=== PATIENT | male | born 1935 | race Caucasian/White ===

== ENCOUNTER → 2016-12-24 | Outpatient (CLI) | payer OTHER ==
[~2016-12-24] MED LIST: ASPIRIN325 PO; AUGMENTIN400 MG/53 PO; CRESTOR10 MG PO; CRESTOR20 MG PO; FAMVIR250 MG PO; FISH OIL 1,001000 M2 PO; FLAGYL500 MG PO; MULTI-VITAMIN1 EAC5 PO; MULTIPLE VITAM1 EAC3 PO; NEXIUM20 MG PO; NEXIUM40 MG PO; TUMERIC; TYLENOL325 MG PO; VITAMIN D32000 UNI1 PO; VITAMIN D400 UNI1 PO
[2016-12-24 11:44] LABS: CALCIUM 9.3 mg/dL (8.5-10.1); CREATININE 0.9 mg/dL (0.7-1.3); POTASSIUM 4.5 mmol/L (3.5-5.1)
== END ==
LOC: CAT 10:53
PROVIDERS: Internal Medicine
DX: I71.2 Thoracic aortic aneurysm, without rupture (principal)

== ENCOUNTER 2017-01-12 05:25 | Inpatient (IN) | payer OTHER ==
[2017-01-10 11:06] LABS: HEMATOCRIT 36.8 % (42.0-52.0); HEMOGLOBIN 12.2 gm/dL (14.0-18.0); MCH 28.7 pg (26.0-34.0); MCHC 33.3 g/dL (28.0-37.0); MCV 86.3 fL (80.0-100.0); RBC 4.26 mil/uL (4.50-6.00); RDW 14.9 % (10.5-14.5); WBC 4.8 thou/uL (4.0-11.0)
[2017-01-10 11:21] LABS: ALBUMIN 4.1 g/dL (3.4-5.0); CALCIUM 9.3 mg/dL (8.5-10.1); CREATININE 0.8 mg/dL (0.7-1.3); POTASSIUM 4.5 mmol/L (3.5-5.1); TOTAL BILIRUBIN 0.3 mg/dL (<0.1-1.0); TOTAL PROTEIN 7.1 g/dL (6.4-8.2)
[2017-01-10 13:52] LABS: URINE BILIRUBIN NEGATIVE (Negative); URINE BLOOD NEGATIVE (Negative); URINE COLOR YELLOW; URINE GLUCOSE-RANDOM* NEGATIVE (Negative); URINE KETONES NEGATIVE (Negative); URINE NITRITE NEGATIVE (Negative); URINE PROTEIN (DIPSTICK) NEGATIVE (Negative); URINE SPECIFIC GRAVITY <= 1.005 (1.003-1.035); URINE UROBILINOGEN 0.2 E.U./dl (0.2-1.0)
[~2017-01-12] VITALS: Ht 182.9 cm; Wt 83.1 kg
--- NOTE | ~2017-01-12 | O ---
[facility] [place] [address] OPERATIVE REPORT Name: MARI JAMISON V Room #: 202-P [facility] IN M.R.#: [id number] Admission: 01/12/17 Attend Phys: Ramírez Vo MD Discharge: 01/14/17 Date of : 33 Report #: [id number] THIS REPORT FOR: //name// CC: Ramírez Russellbrannon DATE OF SERVICE: 01/12/2017 DATE OF SERVICE: 01/12/2017. PREOPERATIVE DIAGNOSIS: Infrarenal abdominal aortic aneurysm. POSTOPERATIVE DIAGNOSIS: Infrarenal abdominal aortic aneurysm. OPERATION: Stent graft implant for infrarenal abdominal aortic aneurysm. SURGEONS: Ramírez Vo MD and Mark Barron MD. DEAN OF FACULTY: Yong CANTU ANESTHESIA: General. INDICATIONS: The patient is an 81-year-old with a large infrarenal abdominal aortic aneurysm that appears suitable for stent graft implant. The neck of the aneurysm was somewhat conical and that it was a bit more dilated at the renal level than just below. FINDINGS AND TECHNIQUE: After general anesthesia was established, incisions were made in both groins to expose the common, deep and superficial femoral arteries. Then, 10,000 units of heparin were given. Through each side, 6-[place] introducer sheaths were placed using Amplatz needle, guidewire, and Seldinger technique. Wires were then exchanged, catheters were used to finally place Amplatz wires on each side and then over these femoral artery cut-downs were performed on each side to place an 18-[place] introducer on the left and the 12-[place] Islander on the right. Through the 18-[place] sheath introducer, the main component was introduced 26 x 14 mm x 16 cm device was placed through the right side. The lowest renal artery was entered with the selective catheter and then, a guidewire was passed and then this was used to identify the level of the renal artery. [facility] [address] [place] [address] OPERATIVE REPORT Name: MARI JAMISON V Room #: 202-P DIS IN M.R.#: [id number] Admission: 01/12/17 Attend Phys: Ramírez Vo MD Discharge: 01/14/17 Date of : 33 Report #: [id number] The main component was deployed, and then, the contralateral gate was cannulated. Presence within the gate was ascertained with the pigtail spin technique. A right iliac flush arteriogram was done to identify the hypogastric takeoff, and using this, the 14 mm x 12 cm device was placed, and this landed in good position above the hypogastric artery. The main component was fully deployed, and then, compliant balloon was used to fully dilate it. When all of the components had been fully dilated, a final arteriogram was taken. We were not satisfied with the arteriogram and had identified a type 1 leak. The Tri-Lobe balloon was then substituted for a Q50, and then, further dilatation was done. Once again, an arteriogram showed a type 1 leak, and so repeat dilatation was performed. A final arteriogram showed trivial leak with good apposition throughout, and we felt that we would be satisfied with this rather than placing an aortic cuff at this time. Satisfied with the arteriogram, the dilators and sheaths were removed, and then, the stiff wires were removed. The arteries were closed with interrupted Prolene bilaterally, and then, flow was reestablished. Protamine was given to reverse the heparin. Hemostasis was ascertained. The patient was taken to the recovery area in good condition. All counts reported as correct. <ELECTRONICALLY SIGNED> By: Ramírez Vo MD 01/18/17 1325 18 50 Ramírez Vo MD /nt
--- NOTE | ~2017-01-12 | EKG ---
[address] [employer] [place] [address] ELECTROCARDIOGRAM REPORT Name: MARI JAMISON V Room #: 246-P ADM IN M.R.#: [id number] Admission: 01/12/17 Attend Phys: Ramírez Vo MD Discharge: Date of : 33 Report #: [id number] THIS REPORT FOR: //name// [facility] Test Date: 2017-01-12 Test Time: 11:55:30 Pat Name: MARI JAMISON Department: Room: 246 Gender: M Obstetrics Gynecology Md: KELLEY : 1935 Requested By: Ramírez Vo Order Number: [id number] MD: Patel Sun Measurements Intervals [place] Rate: 69 P: 30 SC: 190 QRS: -15 QRSD: 108 T: 80 QT: 419 QTc: 449 Interpretive Statements Sinus rhythm Ventricular ectopy Borderline left axis deviation Low voltage, extremity leads Abnormal R-wave progression, early transition Compared to ECG 11/29/2015 07:14:13 No significant change was found Electronically Signed On 01-13-2017 8:19:49 CDT by Patel Sun [email or web address] <ELECTRONICALLY SIGNED> By: Patel Sun MD, [facility] 01/13/17 0819 1155 1155 Patel Sun MD, [facility] /EPI
[~2017-01-12 05:25] MED LIST changes: +FISH OIL PO; +IRON PO; +JUICE PLUS; +MULTI VITAMIN1 EACH PO; +NEXIUM PO; +PLANT ENZYME PO; +PLAVIX 75 MG TA75 M1 PO; +TUMERIC PO; +VITAMIN D2000 UNIT PO
[2017-01-12 12:22] LABS: APTT 25.4 Seconds (24.5-32.8); INR 1.1; PROTIME 11.4 Seconds (9.3-11.4)
[2017-01-12 12:30] VITALS: BP 163/81
[2017-01-13] VITALS (7 sets, daily range): BP systolic 127–162; BP diastolic 64–88
[2017-01-13 06:47] LABS: HEMATOCRIT 34.3 % (42.0-52.0); HEMOGLOBIN 11.8 gm/dL (14.0-18.0); MCH 29.5 pg (26.0-34.0); MCHC 34.3 g/dL (28.0-37.0); RBC 3.99 mil/uL (4.50-6.00); RDW 14.6 % (10.5-14.5)
[2017-01-13 06:55] LABS: CALCIUM 8.9 mg/dL (8.5-10.1); CREATININE 1.1 mg/dL (0.7-1.3); POTASSIUM 4.1 mmol/L (3.5-5.1)
[2017-01-14 04:24] VITALS: BP 132/66
[2017-01-14 07:36] VITALS: BP 137/85
[2017-01-14 11:42] VITALS: BP 152/67
[2017-01-14] MEDS ORDERED: AMLODIPINE BESYL5 M1 PO (14:11)
[2017-01-14 14:47] VITALS: BP 152/67
== END 2017-01-14 15:28 | disposition home or self-care (01) | DRG 269 ==
LOC: TBA 05:25 → ICU 05:25 → 2N 01-13 20:14
PROVIDERS: Physician Assistant; Surgery Vascular Surgery
PROC: 04V03DZ Restriction of Abdominal Aorta with Intraluminal Device, Percutaneous Approach (ICD-10-PCS; principal; 2017-01-12)
PROC: B4181ZZ Fluoroscopy of Bilateral Renal Arteries using Low Osmolar Contrast (ICD-10-PCS; principal; 2017-01-12)
DX: I71.4 Abdominal aortic aneurysm, without rupture (principal); I10 Essential (primary) hypertension; Z79.899 Other long term (current) drug therapy; Z79.82 Long term (current) use of aspirin
CPT/HCPCS: 10078; 47375; 48888; 50010; 50101; 50386; 50455; 51078; 51751; 54118; 56524; 56526; 56531; 56668; 56760; 57093; 62110; 62900; 64031; 65020; 65040; 70005

== ENCOUNTER → 2017-02-14 | Outpatient (CLI) | payer OTHER ==
[~2017-02-14] MED LIST changes: +AMLODIPINE BESYL5 M1 PO
[2017-02-14 08:42] LABS: CREATININE 0.9 mg/dL (0.7-1.3)
== END ==
LOC: CAT 07:44
PROVIDERS: Nuclear Medicine Nuclear Cardiology
DX: I71.4 Abdominal aortic aneurysm, without rupture (principal); Z95.828 Presence of other vascular implants and grafts

== ENCOUNTER 2017-02-25 18:33 | Inpatient (IN) | payer OTHER ==
[~2017-02-25] VITALS: Ht 182.9 cm; Wt 83.9 kg
--- NOTE | ~2017-02-25 | EKG ---
[address] [place] [address] ELECTROCARDIOGRAM REPORT Name: YAQUELINMARI Farzaneh Room #: 312-P [facility] IN M.R.#: [id number] Admission: 02/25/17 Attend Phys: Pedrito Mishra MD Discharge: Date of : 33 Report #: [id number] THIS REPORT FOR: //name// [facility] Test Date: 2017-02-26 Test Time: 08:18:59 Pat Name: MARI JAMISON Department: Room: 312 P Gender: M Rn Birthing: RAMON : 1935 Requested By: Kae Pak Order Number: [id number] MD: Patel Sun Measurements Intervals [place] Rate: 88 P: 0 WI: 224 QRS: -6 QRSD: 101 T: QT: 367 QTc: 444 Interpretive Statements Sinus rhythm Multiple ventricular premature complexes Prolonged WI interval Borderline low voltage, extremity leads Nonspecific T abnormalities Compared to ECG 01/12/2017 11:55:30 Nonspecific change in the ST and T-wave segments Electronically Signed On 02-27-2017 10:52:40 CDT by Patel Sun [email or web address] <ELECTRONICALLY SIGNED> By: Patel Sun MD, [facility] 02/27/17 1052 7 0818 Patel Sun MD, [facility] /EPI
--- NOTE | ~2017-02-25 | HC ---
[facility] [place] [address] CONSULTATION Name: YAQUELINMARI Farzaneh Room #: 312-P [facility] IN ..#: [id number] Admission: 02/25/17 Attend Phys: Pedrito Mishra MD Discharge: Date of : 33 Report #: [id number] THIS REPORT FOR: //name// CC: Pedrito Francis DATE OF SERVICE: 02/26/2017 CONSULTATION: Infectious diseases. HISTORY OF PRESENT ILLNESS: The patient is an 81-year-old white male who comes to [facility] on February 25 because of a witnessed syncopal episode. The patient was at the kitchen table when he lost consciousness for about 5 minutes. He was shaken and then aroused and then had an emesis and incontinent urine. The patient was brought to the emergency room for further evaluation and treatment. The patient has had history of similar episode which was considered vasovagal in nature. The patient had esophageal cancer 10 years ago, treated with intensive radiation therapy and was thought to have possible damage to the vagal nerve as a result. However, the patient also has esophageal stricture related to the cancer and treatment and does have a history of aspiration. The patient had a temperature of 100.9. Infectious disease consultation was requested to assist with the evaluation and possible antibiotic treatment. PAST MEDICAL HISTORY: Past history, as noted, includes the esophageal cancer, which apparently was thought to be cured by the radiation therapy. Other diagnoses include stroke seen on MRI scan, sleep apnea, esophageal reflux and prostate cancer. The patient has intermittent esophageal obstruction, requiring dilation. He last had an esophageal dilation approximately 6 months ago and was scheduled to have one done here in the next few weeks at . PAST SURGICAL HISTORY: Includes placement of a stent graft in the abdominal aortic aneurysm. SOCIAL HISTORY: The patient is . 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 He did not have any history of tobacco, alcohol or drugs. REVIEW OF SYSTEMS: The patient says he feels pretty much back to normal. He is not having really any pain. Denies any headache, sinus congestion or sore throat. He is not having any trouble swallowing. He denies cough, congestion, dyspnea or shortness of breath. He denies any pain in his chest. The patient denies nausea, vomiting, diarrhea, constipation or abdominal pain. No urinary symptoms. No trouble with his extremities. PHYSICAL EXAMINATION: [facility] [address] [place] [address] CONSULTATION Name: MARI JAMISON V Room #: 312-P [facility] IN ..#: [id number] Admission: 02/25/17 Attend Phys: Pedrito Mishra MD Discharge: Date of : 33 Report #: [id number] GENERAL: On examination, the patient appears his stated age, alert, oriented, comfortable, pleasant, not in any distress. The patient is generally weak, but otherwise alert and appropriate. VITAL SIGNS: Show maximum temperature of 100.9 in the ER. He has been afebrile since then. SKIN: Pale, without any rash, lesion or exanthem. ENT EXAMINATION: Negative. HEART: Heart sounds normal. LUNGS: Clear to anterior and posterior auscultation. ABDOMEN: Belly is soft and nontender. No mass, no organomegaly. EXTREMITIES: Weak, but otherwise unremarkable. LABORATORY DATA: The white count is 7.8, hemoglobin 9.7 and platelets 112,000. Electrolytes are normal. BUN 15, creatinine 1.1 and glucose 148. The C-reactive protein is elevated at 15.5. Chest x-ray shows left lower lobe atelectasis, no convincing infiltrates. Doppler of the carotids show 70% blockage on the left internal carotid artery. SUMMARY: In summary, the patient had an episode with transient loss of consciousness with a history of vasovagal spells of this nature. There is no history of nausea, vomiting, emesis or any aspiration witnessed with this event. The patient had a mild fever in the ER, but now appears to be pretty much back to his baseline. At this time, I am not convinced there is any infection. The elevated temperature may have just been associated with the acute event. I would recommend no antibiotic therapy and careful followup. We can do incentive spirometry and aerosolized bronchodilators to see if the atelectasis will resolve. We can do followup chest x-ray and CBC and we can check a procalcitonin. Should the patient develop any more convincing symptoms of infection, antibiotics would be appropriate. However, at this time, I think this is most likely just another one of his vasovagal episodes. <ELECTRONICALLY SIGNED> By: Ramírez Elliott MD 02/27/17 2233 0834 0953 Ramírez Elliott MD /nt
--- NOTE | ~2017-02-25 | EKG ---
[place] [address] [facility] [place] [address] ELECTROCARDIOGRAM REPORT Name: MARI JAMISON V Room #: 312-P DIS IN M.R.#: [id number] Admission: 02/25/17 Attend Phys: Hakeem Tillman DO Discharge: 02/28/17 Date of : 33 Report #: [id number] THIS REPORT FOR: //name// [facility] Test Date: 2017-02-28 Test Time: 06:51:21 Pat Name: MARI JAMISON Department: Room: 312 P Gender: M Package Liner: christine : 1935 Requested By: Kae Pak Order Number: [id number] MD: Patel Sun Measurements Intervals [place] Rate: 86 P: 5 AR: 188 QRS: -11 QRSD: 95 T: 54 QT: 369 QTc: 442 Interpretive Statements Sinus rhythm occasion al PVC Abnormal R-wave progression, early transition Baseline wander in lead(s) II,III,aVF Compared to ECG 02/26/2017 08:18:59 Ventricular premature complex(es) now present Nonspecific ST and T wave abnormality Electronically Signed On 03-02-2017 7:04:33 CDT by Patel Sun [email or web address] <ELECTRONICALLY SIGNED> By: Patel Sun MD, [facility] 03/02/17 0704 0651 0651 Patel Sun MD, [facility] /EPI
--- NOTE | ~2017-02-25 | HC ---
[facility] [place] [address] CONSULTATION Name: MARI JAMISON V Room #: 312-P [facility] IN .R.#: [id number] Admission: 02/25/17 Attend Phys: Hakeem Tillman DO Discharge: 02/28/17 Date of : 33 Report #: [id number] THIS REPORT FOR: //name// CC: Pedrito Francis DATE OF SERVICE: 02/26/2017 REASON FOR CONSULTATION: Syncope. HISTORY OF PRESENT ILLNESS: The patient is an 81-year-old gentleman with a history of remote syncope. He also has a history of esophageal cancer diagnosed in 2007 for which he underwent radiation therapy. He has had recurrent esophageal dilatations and is due for one in April. He was at a restaurant yesterday with his , eating dinner. He felt mildly diaphoretic. The next thing he knows he was being "shaken awake." He was incontinent of urine. He was brought to the emergency department where he was hemodynamically stable and pain free. Of particular note, he underwent recent aortic stent grafting and as part of the evaluation for that, had a variety of cardiovascular tests performed including coronary angiography, which demonstrated normal coronary vasculature and normal coronary arteries. His reports that prior syncopal episodes in the past have occurred when he has bent over at the waist. This was not the case with yesterday's episode, although he was given a warning that something was not quite right prior to be the syncopal episode. He denies palpitations. He denies heart failure symptoms including orthopnea or paroxysmal nocturnal dyspnea. No recent fevers or chills. No reason for him to have been dehydrated. MEDICATIONS: Medicines include Plavix 75 mg daily, Crestor 10 mg daily, aspirin, Nexium, iron, and amlodipine 5 mg twice daily. PAST MEDICAL HISTORY: Past history is notable for esophageal cancer, tonsillectomy, cataract excision, aortic stent grafting, prior TIAs, appendectomy, sleep apnea treated with CPAP, and prostate cancer. 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 He does not smoke or drink. . FAMILY HISTORY: Unremarkable for premature coronary disease. REVIEW OF SYSTEMS: All systems negative except as that noted above. PHYSICAL EXAMINATION: GENERAL: Reveals a pleasant gentleman in no distress. VITAL SIGNS: Blood pressure is 116/65 and heart rate of 85 and regular. He is afebrile. [facility] [address] [place] [address] CONSULTATION Name: MARI JAMISON V Room #: 312-P [facility] IN ..#: [id number] Admission: 02/25/17 Attend Phys: Hakeem Tillman DO Discharge: 02/28/17 Date of : 33 Report #: [id number] HEENT: There are neither xanthelasma, subcutaneous xanthomata, oral mucosal or digital cyanosis, or kyphoscoliosis present. CHEST: Clear to auscultation and percussion. CARDIAC: Reveals a regular rate and rhythm with normal S1, S2. No murmurs or rubs. ABDOMEN: Soft and nontender. EXTREMITIES: Without cyanosis, clubbing, or edema. Radial pulses are 2+. NEUROLOGIC: He is alert with a nonfocal exam. LABORATORY DATA: EKG: Sinus rhythm with first-degree AV block and occasional premature ventricular complexes. Sodium 141, potassium 3.6, creatinine 1.0, and glucose 148. ProBNP of 101. Troponin is normal. Coagulation parameters are normal. White count 6.5, hemoglobin 10, hematocrit 32, and platelet count 125. IMPRESSION: 1. Syncope. 2. Esophageal carcinoma, remote. 3. Recent abdominal aortic stent grafting. 4. Dyslipidemia. 5. Mild hypertension. RECOMMENDATIONS: 1. Given his recent extensive and normal cardiovascular evaluation, I do not believe reassessment of systolic function is needed at this point. This episode had features suspicious for primary dysrhythmia. Although, nothing has been seen on telemetry monitoring, I would recommend an event recorder as an outpatient. 2. No driving for any event-free interval. 3. No medication changes at this point. If the event recorder is unremarkable, I would consider placement of an implantable loop recorder. I have discussed these issues with the patient. Thank you for asking me to participate in his care. <ELECTRONICALLY SIGNED> By: Patel Sun MD, FACC 03/01/17 1635 1211 1533 Patel Sun MD, FAC /nt
--- NOTE | ~2017-02-25 | EKG ---
[address] [place] [address] ELECTROCARDIOGRAM REPORT Name: MARI JAMISON V Room #: 312-P DIS IN M.R.#: [id number] Admission: 02/25/17 Attend Phys: Hakeem Tillman DO Discharge: 02/28/17 Date of : 33 Report #: [id number] THIS REPORT FOR: //name// [facility] Test Date: 2017-02-27 Test Time: 07:49:40 Pat Name: MARI JAMISON Department: Room: 312 P Gender: M Patient Registration Clerk: RASHAUN : 1935 Requested By: Kae Pak Order Number: [id number] MD: Patel Sun Measurements Intervals [place] Rate: 115 P: 5 NE: 192 QRS: 21 QRSD: 71 T: 120 QT: 354 QTc: 490 Interpretive Statements Sinus tachycardia Low voltage, extremity leads Nonspecific T abnormalities Borderline prolonged QT interval Baseline wander in lead(s) III Compared to ECG 01/12/2017 11:55:30 Nonspecific change in the ST and T-wave segments Electronically Signed On 03-02-2017 6:59:36 CDT by Patel Sun [email or web address] <ELECTRONICALLY SIGNED> By: Patel Sun MD, [facility] 03/02/17 0659 0749 0749 Patel Sun MD, [facility] /EPI
--- NOTE | ~2017-02-25 | EKG ---
[address] [employer] [place] [address] ELECTROCARDIOGRAM REPORT Name: MARI JAMISON V Room #: 312-P [facility] IN M.R.#: [id number] Admission: 02/25/17 Attend Phys: Pedrito Mishra MD Discharge: Date of : 33 Report #: [id number] THIS REPORT FOR: //name// [facility] ED Test Date: 2017-02-25 Test Time: 18:38:52 Pat Name: MARI JAMISON Department: Room: [facility] Gender: M Bd Special Education Teacher: GINETTE Gonzalez : 1935 Requested By: Mira Rios Order Number: [id number] MD: Patel Sun Measurements Intervals [place] Rate: 106 P: 27 IA: 191 QRS: -43 QRSD: 119 T: 101 QT: 321 QTc: 427 Interpretive Statements Sinus tachycardia Premature ventricular complexes Nonspecific IVCD with LAD Nonspecific ST and T wave abnormality Compared to ECG 01/12/2017 11:55:30 nonspecific change in the ST and T-wave segments Electronically Signed On 02-27-2017 10:50:02 CDT by Patel Sun [email or web address] <ELECTRONICALLY SIGNED> By: Patel Sun MD, [facility] 02/27/17 1050 1838 1838 Patel Sun MD, [facility] /EPI
[2017-02-25 19:11] LABS: ABSOLUTE NEUTROPHILS 4.4 thou/uL (1.4-8.2); BASOPHILS 0.3 % (0.0-2.0); EOSINOPHILS 2.4 % (0.0-3.0); HEMATOCRIT 32.1 % (42.0-52.0); HEMOGLOBIN 10.7 gm/dL (14.0-18.0); LYMPHOCYTES 18.8 % (24.0-44.0); MCH 30.3 pg (26.0-34.0); MCHC 33.2 g/dL (28.0-37.0); MCV 91.1 fL (80.0-100.0); MONOCYTES 9.9 % (1.0-8.0); PLATELET COUNT 125 thou/uL (150-400); POLYS 68.6 % (36.0-66.0); RBC 3.52 mil/uL (4.50-6.00); RDW 16.1 % (10.5-14.5); WBC 6.5 thou/uL (4.0-11.0)
[2017-02-25 19:12] LABS: MANUAL DIFF NO
[2017-02-25 19:22] LABS: ANION GAP 9 mmol/L (7-16); BUN 13 mg/dL (7-18); CALCIUM 9.1 mg/dL (8.5-10.1); CHLORIDE 103 mmol/L (98-107); CO2 29 mmol/L (21-32); GLUCOSE 148 mg/dL (74-106); POTASSIUM 3.6 mmol/L (3.5-5.1); SODIUM 141 mmol/L (136-145)
[2017-02-25 19:33] LABS: ALBUMIN 3.9 g/dL (3.4-5.0); ALKALINE PHOSPHATASE 70 U/L (46-116); INR 1.1; NT-PRO BRAIN NAT PEPTIDE 101 pg/mL (<300); PROTIME 10.9 Seconds (9.3-11.4); SGOT 19 U/L (15-37); SGPT 19 U/L (30-65); TOTAL BILIRUBIN 0.3 mg/dL (<0.1-1.0); TOTAL PROTEIN 7.4 g/dL (6.4-8.2); TROPONIN-I < 0.04 ng/mL (<0.04-0.07)
[2017-02-25 21:03] VITALS: BP 116/65
[2017-02-25 21:22] VITALS: BP 128/79
[2017-02-25 23:59] VITALS: BP 122/72
[2017-02-26 01:14] VITALS: BP 113/72
[2017-02-26 03:20] VITALS: BP 109/66
[2017-02-26 04:06] LABS: HEMATOCRIT 28.8 % (42.0-52.0); HEMOGLOBIN 9.7 gm/dL (14.0-18.0); MCH 30.9 pg (26.0-34.0); MCHC 33.6 g/dL (28.0-37.0); RBC 3.14 mil/uL (4.50-6.00); RDW 15.6 % (10.5-14.5); WBC 7.8 thou/uL (4.0-11.0)
[2017-02-26 04:30] LABS: ANION GAP 7 mmol/L (7-16); BUN 15 mg/dL (7-18); CALCIUM 8.5 mg/dL (8.5-10.1); CHLORIDE 102 mmol/L (98-107); CO2 31 mmol/L (21-32); CREATININE 1.1 mg/dL (0.7-1.3); GLUCOSE 130 mg/dL (74-106); MAGNESIUM 1.6 mg/dL (1.8-2.4); POTASSIUM 4.4 mmol/L (3.5-5.1); SODIUM 140 mmol/L (136-145); TROPONIN-I < 0.04 ng/mL (<0.04-0.07)
[2017-02-26 07:59] VITALS: BP 125/71
[2017-02-26 16:40] VITALS: BP 172/89
[2017-02-26 19:01] VITALS: BP 121/71
[2017-02-27 04:34] VITALS: BP 150/54
[2017-02-27 04:52] VITALS: BP 149/81
[2017-02-27 07:30] VITALS: BP 108/68
[2017-02-27 07:37] LABS: HEMATOCRIT 31.5 % (42.0-52.0); HEMOGLOBIN 10.5 gm/dL (14.0-18.0); MCH 30.3 pg (26.0-34.0); MCHC 33.2 g/dL (28.0-37.0); MCV 91.2 fL (80.0-100.0); PLATELET COUNT 111 thou/uL (150-400); RBC 3.45 mil/uL (4.50-6.00); RDW 15.5 % (10.5-14.5); WBC 7.2 thou/uL (4.0-11.0)
[2017-02-27 07:42] LABS: MANUAL DIFF YES
[2017-02-27 07:58] LABS: ANION GAP 8 mmol/L (7-16); BUN 12 mg/dL (7-18); CALCIUM 9.1 mg/dL (8.5-10.1); CHLORIDE 101 mmol/L (98-107); CO2 30 mmol/L (21-32); GLUCOSE 132 mg/dL (74-106); MAGNESIUM 1.8 mg/dL (1.8-2.4); POTASSIUM 3.8 mmol/L (3.5-5.1); SODIUM 139 mmol/L (136-145); TROPONIN-I < 0.04 ng/mL (<0.04-0.07)
[2017-02-27 10:55] LABS: METAMYELOCYTES 1 %; TOTAL CELL COUNT 100
[2017-02-27 10:56] LABS: ABSOLUTE NEUTROPHILS 6.1 thou/uL (1.4-8.2); ANISOCYTOSIS SLIGHT
[2017-02-27 15:40] VITALS: BP 142/82
[2017-02-27 19:33] VITALS: BP 136/67
[2017-02-28 03:50] VITALS: BP 139/85
[2017-02-28 03:50] LABS: HEMOGLOBIN 9.5 gm/dL (14.0-18.0); MCH 30.8 pg (26.0-34.0); MCHC 34.1 g/dL (28.0-37.0); MCV 90.5 fL (80.0-100.0); RBC 3.09 mil/uL (4.50-6.00); RDW 15.6 % (10.5-14.5); WBC 6.7 thou/uL (4.0-11.0)
[2017-02-28 03:55] LABS: ANION GAP 8 mmol/L (7-16); BUN 11 mg/dL (7-18); CALCIUM 8.9 mg/dL (8.5-10.1); CHLORIDE 98 mmol/L (98-107); CO2 29 mmol/L (21-32); CREATININE 0.9 mg/dL (0.7-1.3); GLUCOSE 131 mg/dL (74-106); MAGNESIUM 1.7 mg/dL (1.8-2.4); POTASSIUM 3.8 mmol/L (3.5-5.1); SODIUM 135 mmol/L (136-145); TROPONIN-I < 0.04 ng/mL (<0.04-0.07)
[2017-02-28 08:00] VITALS: BP 124/82
[2017-02-28] MEDS ORDERED: AUGMENTIN 500-1 EACH PO (09:40)
[2017-02-28 10:30] VITALS: BP 111/57
[2017-02-28 14:17] VITALS: BP 111/57
== END 2017-02-28 15:40 | disposition home or self-care (01) | DRG 177 ==
LOC: ER 18:33 → EROBS 20:41 → 3N 20:41
PROVIDERS: Nurse Practitioner; Nurse Practitioner Family
DX: J69.0 Pneumonitis due to inhalation of food and vomit (principal); J96.00 Acute respiratory failure, unspecified whether with hypoxia or hypercapnia; I71.4 Abdominal aortic aneurysm, without rupture; I48.91 Unspecified atrial fibrillation; K21.9 Gastro-esophageal reflux disease without esophagitis; K22.2 Esophageal obstruction; E78.00 Pure hypercholesterolemia, unspecified; E78.5 Hyperlipidemia, unspecified; I10 Essential (primary) hypertension; G47.30 Sleep apnea, unspecified; Z90.49 Acquired absence of other specified parts of digestive tract; Z85.01 Personal history of malignant neoplasm of esophagus; Z98.42 Cataract extraction status, left eye; Z98.41 Cataract extraction status, right eye; Z85.46 Personal history of malignant neoplasm of prostate; Z86.73 Personal history of transient ischemic attack (TIA), and cerebral infarction without residual deficits; Z92.3 Personal history of irradiation; Z79.82 Long term (current) use of aspirin; Z79.899 Other long term (current) drug therapy
CPT/HCPCS: 10096

== ENCOUNTER → 2017-08-11 | Outpatient (CLI) | payer OTHER ==
[~2017-08-11] MED LIST changes: +ALBUTEROL2.5 MG/31 INH; +AUGMENTIN 500-1 EACH PO; +AUGMENTIN 875-1 EACH PO; +IPRAT-ALBUT 0.5-3 ML INH; +IRON325 PO; +LASIX 40 MG TAB40 M2 PO; +LOPRESSOR25 PO; +PERCOCET PO; +PULMICORT0.5 MG/21 INH; +SEROQUEL 25 MG25 M1 PO
== END ==
LOC: CAT 07:17
PROVIDERS: Nuclear Medicine Nuclear Cardiology
DX: I71.4 Abdominal aortic aneurysm, without rupture (principal); M16.0 Bilateral primary osteoarthritis of hip; N20.0 Calculus of kidney; I72.2 Aneurysm of renal artery; I25.10 Atherosclerotic heart disease of native coronary artery without angina pectoris; Z98.890 Other specified postprocedural states

== ENCOUNTER → 2018-02-16 | Outpatient (CLI) | payer OTHER ==
[~2018-02-16] MED LIST changes: -ALBUTEROL2.5 MG/31 INH; -AUGMENTIN 875-1 EACH PO; -IPRAT-ALBUT 0.5-3 ML INH; -IRON325 PO; -LASIX 40 MG TAB40 M2 PO; -LOPRESSOR25 PO; -PERCOCET PO; -PULMICORT0.5 MG/21 INH; -SEROQUEL 25 MG25 M1 PO
[2018-02-16 08:22] LABS: CREATININE 0.9 mg/dL (0.7-1.3)
== END ==
LOC: CAT 07:40
PROVIDERS: Nuclear Medicine Nuclear Cardiology
DX: Z01.812 Encounter for preprocedural laboratory examination (principal); I71.4 Abdominal aortic aneurysm, without rupture; N20.0 Calculus of kidney; Z95.828 Presence of other vascular implants and grafts

== ENCOUNTER 2018-05-02 20:22 | Inpatient (IN) | payer OTHER ==
[~2018-05-02] VITALS: Ht 182.9 cm; Wt 83.2 kg
--- NOTE | ~2018-05-02 | HC ---
[facility] [place] [address] CONSULTATION Name: MARI JAMISON V Room #: 241-P [facility] IN M.R.#: [id number] Admission: 05/02/18 Attend Phys: Tee Barajas MD Discharge: Date of : 33 Report #: [id number] THIS REPORT FOR: //name// CC: Tee Francis DATE OF SERVICE: 05/10/2018 REASON FOR CONSULTATION: Surgically placed gastrostomy tube. HISTORY OF PRESENT ILLNESS: The patient is an 82-year-old who I do know from about 10 years ago. The patient with esophageal cancer and had difficulty with swallowing. I placed a laparoscopic gastrostomy tube. Subsequently, the patient was seen for a perirectal abscess or fistula. Recently, he was admitted on 05/02/2018 with passing out. The patient has been getting dilatation of his esophagus to assist him with swallowing, but that has gradually gotten worse and worse. The patient also has stridor. He underwent a tracheostomy tube today by Dr. Rodriguez. Attempts have been made to try to replace a PEG tube and to place a PEG tube endoscopically, but that was unsuccessful. The patient has apparently a stricture of the esophagus to about a cm. The patient also has difficulty emptying and failed a swallow study. The patient did get a consult for interventional radiologist for PEG tube, but they declined. I have been consulted for a laparoscopic placement of the G-tube. PHYSICAL EXAMINATION: GENERAL: He is alert. He has given me the thumbs up. was present in the room during the consult. ABDOMEN: Soft and nondistended. Has a right lower quadrant scar from appendectomy. I do not really see much of the laparoscopic incisions. He does have a site in the left upper quadrant where the gastrostomy tube was. No mass, tenderness, guarding. No ascites. IMPRESSION: The patient is an 82-year-old with esophageal stricture, aspiration, need for gastrostomy tube for feeding. This has not been able to be placed with endoscopic approach nor Interventional Radiology. I agree with recommendation for laparoscopic placement. I will try to set this up on Tuesday. There is a big case I have tomorrow already scheduled for on 05/11/2018. Also, we will need to contact the OR to make sure the laparoscopic feeding tube kit is available. <ELECTRONICALLY SIGNED> By: Mango Chapin MD 05/14/18 1153 1550 0047 Mango Chapin MD /nt
--- NOTE | ~2018-05-02 | 2DMMODE ---
[facility] [address] [employer] [address] 2 D/M-MODE ECHOCARDIOGRAM Name: YAQUELINMARI Farzaneh Room #: 364-P [facility] IN ..#: [id number] Admission: 05/02/18 Attend Phys: Tee Barajas MD Discharge: Date of : 31 Date of Service: 05/03/18 1018 Report #: [id number] THIS REPORT FOR: //name// APPROVED REPORT Study performed: 05/03/2018 09:02:18 EXAM: Comprehensive 2D, Doppler, and color-flow Echocardiogram Patient Location: Bedside Room #: 364 Status: routine BSA: 2.06 HR: 104 bpm BP: 146/78 mmHg Other Information Study Quality: Adequate Indications Syncope Hypertension/HDD Volumes Left Atrial Volume (Systole) Single Plane 4CH: 44.92 mL Single Plane 2CH: 36.30 mL LA ESV Index: 23.00 mL/m2 Aortic Valve AoV Peak Ammon.: 1.61 m/s AO Peak Gr.: 10.42 mmHg LVOT Max P.01 mmHg LVOT Max V: 1.23 m/s Pulmonary Valve PV Peak Ammon.: 1.20 m/s PV Peak Gr.: 5.79 mmHg Left Ventricle The left ventricle is normal size. There is normal LV segmental wall motion. There is normal left ventricular wall thickness. The left ventricular systolic function is normal. The left ventricular ejection fraction is within the normal range. LVEF is 55-60%. Grade I - abnormal relaxation pattern. Right Ventricle The right ventricle is normal size. The right ventricular systolic function is normal. [facility] [address] [facility] [address] [address] 2 D/M-MODE ECHOCARDIOGRAM Name: MARI JAMISON V Room #: 364-P [facility] IN ..#: [id number] Admission: 05/02/18 Attend Phys: Tee Barajas MD Discharge: Date of : 33 Date of Service: 05/03/18 1018 Report #: [id number] [place] The left atrium size is normal. The right atrium size is normal. Aortic Valve The aortic valve is normal in structure. No aortic regurgitation is present. There is no aortic valvular stenosis. Mitral Valve The mitral valve is normal in structure. There is no mitral valve regurgitation noted. No evidence of mitral valve stenosis. Tricuspid Valve The tricuspid valve is normal in structure. There is no tricuspid valve regurgitation noted. Pulmonic Valve The pulmonary valve is normal in structure. There is no pulmonic valvular regurgitation. Great Vessels The aortic root is normal in size. IVC is normal in size and collapses >50% with inspiration. Pericardium Trace anterior pericardial effusion. <Conclusion> The left ventricle is normal size. LVEF is 55-60%. The aortic valve is normal in structure. The mitral valve is normal in structure. The tricuspid valve is normal in structure. The pulmonary valve is normal in structure. Trace anterior pericardial effusion. <ELECTRONICALLY SIGNED> By: Blair Garcia MD 05/03/18 1018 1018 1018 Blair Garcia MD /INF
--- NOTE | ~2018-05-02 | EKG ---
[address] [place] [address] ELECTROCARDIOGRAM REPORT Name: YAQUELIN,MARI Farzaneh Room #: 364-P ADM IN M.R.#: [id number] Admission: 05/02/18 Attend Phys: Tee Barajas MD Discharge: Date of : 33 Report #: [id number] THIS REPORT FOR: //name// [facility] ED Test Date: 2018-05-02 Test Time: 20:23:36 Pat Name: MARI JAMISON Department: Room: 364 Gender: M Collection Systems Technician: PAT : 1935 Requested By: Angella Schaefer Order Number: [id number] MD: Bharat Hess Measurements Intervals [place] Rate: 103 P: 51 IA: 206 QRS: -61 QRSD: 106 T: 89 QT: 369 QTc: 483 Interpretive Statements Sinus tachycardia Left anterior fascicular block Abnormal R-wave progression, early transition Nonspecific T abnormalities, lateral leads Compared to ECG 02/28/2017 06:51:21 Left anterior fascicular block now present T-wave abnormality now present Sinus rhythm no longer present Ventricular premature complex(es) no longer present Electronically Signed On 05-03-2018 16:22:20 CDT by Bharat Hess [email or web address] <ELECTRONICALLY SIGNED> By: Bharat Hess MD 05/03/182 22 22 Bharat Hess MD /EPI
--- NOTE | ~2018-05-02 | O ---
[facility] [place] [address] OPERATIVE REPORT Name: MARI JAMISON V Room #: 241-P [facility] IN M.R.#: [id number] Admission: 05/02/18 Attend Phys: Tee Barajas MD Discharge: Date of : 33 Report #: [id number] THIS REPORT FOR: //name// CC: Tee Francis DATE OF SERVICE: 05/12/2018 PREOPERATIVE DIAGNOSIS: Esophageal stricture, history of esophageal cancer, needs gastrostomy tube aspiration. POSTOPERATIVE DIAGNOSIS: Esophageal stricture, history of esophageal cancer, needs gastrostomy tube aspiration. PROCEDURES PERFORMED: Laparoscopic gastrostomy tube placement. COMPLICATIONS: None. ESTIMATED BLOOD LOSS: 5 mL PROCEDURE NOTE: With the patient under general anesthesia, abdomen was prepped and draped in sterile fashion. The patient had a previous incision in the infraumbilical position. A laparoscopic port site was placed supraumbilically, a 2 cm incision was made. Fascia was identified, grasped with hemostat. Fascia was then opened under visualization. Peritoneum was entered with a Veress needle with the abdominal wall lifted anteriorly variant. CO2 was administered without difficulty. After creating pneumoperitoneum pressure of 14, 11 mm trocar was placed into the pneumoperitoneum without difficulty. The patient's stomach was visualized. He does have a slight tunnel from the skin. The stomach will be utilized just adjacent to the L2 side. T-fastener was placed in a yogesh-shaped manner. Four separate T-fasteners were placed. With the T-fastener lifted up against the wall, an incision was made in the skin about a centimeter in size. A needle was then placed into the stomach. The air was placed through the needle. I could see the stomach inflated. This was consistent with the needle in the lumen. A J-wire was then passed. The J-wire was passed with minimal resistance. The track was then dilated with the supply dilator. The dilator was then removed. The gastrostomy tube was supplied with the kit and was placed. This is actually 12-Cymraes in size, a bit smaller than I would like, but this is the only kit we have. This was passed through the Peel-Apart sheath without difficulty. The sheath was peeled apart leaving the tube in place. The balloon was inflated. This was inflated with about 2-3 mL of saline. The balloon was then withdrawn and pulling the stomach up to the wall. The external support buttress part was tied to the tube using 2-0 nylon suture. The external buttress was then sewn to the skin with 2-0 nylon in interrupted fashion x 3. CO2 was evacuated. Trocars removed. The [address] [address] OPERATIVE REPORT Name: MARI JAMISON V Room #: 241-P [facility] IN M.R.#: [id number] Admission: 05/02/18 Attend Phys: Tee Barajas MD Discharge: Date of : 33 Report #: [id number] defect above the umbilicus was closed with [id number] 0 Vicryl x 2. Skin was irrigated. Skin was closed with 5-0 PDS and the laparoscopic port sites. The site of the 11 mm trocar initially, two 5 mm trocars used for the procedure. Steri-Strip, Band-Aids applied. 4 x 4 was placed around the G-tube and Op-Site was then used to cover the G-tube site. The patient tolerated procedure well. <ELECTRONICALLY SIGNED> By: Mango Chapin MD 05/14/18 1153 1555 1807 Mango Chapin MD /nt
--- NOTE | ~2018-05-02 | O ---
[facility] [place] [address] OPERATIVE REPORT Name: MARI JAMISON V Room #: 241-P [facility] IN M.R.#: [id number] Admission: 05/02/18 Attend Phys: Tee Barajas MD Discharge: Date of : 33 Report #: [id number] THIS REPORT FOR: //name// CC: Tee Francis DATE OF SERVICE: 05/10/2018 PREOPERATIVE DIAGNOSES: Respiratory failure, upper airway obstruction, ventilator dependence. POSTOPERATIVE DIAGNOSES: Respiratory failure, upper airway obstruction, ventilator dependence. OPERATIVE PROCEDURE: Tracheostomy. ANESTHESIA: General endotracheal. DESCRIPTION OF PROCEDURE: The patient was taken to the operating room and placed in supine position. The patient already had a previously placed endotracheal tube and general anesthesia was induced intravenously and ventilated through the endotracheal tube. The patient was then prepared and draped in a sterile manner. An incision was placed in the patient's neck in a vertical incision skilled nursing between the sternal notch and the thyroid cartilage. Dissection was carried down through skin and subcutaneous tissue. The patient had previous radiation treatment and there was quite a bit of scarring and new vessel formation throughout. I was able to navigate down to the cricoid cartilage. I cleaned some intervening tissue below this and then identified the tracheal rings. I made an incision through 2 tracheal rings and entered the trachea. I removed a portion of middle of the tracheal rings in order to facilitate an opening for the tracheostomy tube and #6 cuffed nonfenestrated tracheostomy tube was placed into the trachea without difficulty and the patient was ventilated in this manner. The patient tolerated the procedure well and blood loss was minimal. The tracheostomy tube was sewn to the chest with 0 Prolene suture and a trach tie was placed around the neck. The patient was then taken to the Intensive Care Unit for postoperative monitoring. <ELECTRONICALLY SIGNED> By: Mango Rodriguez MD 05/10/18 1759 0855 1043 Mango Rodriguez MD /nt
[2018-05-02 20:23] VITALS: BP 165/84
[2018-05-02 20:33] LABS: ABSOLUTE NEUTROPHILS 6.7 thou/uL (1.4-8.2); BASOPHILS 0.2 % (0.0-2.0); EOSINOPHILS 0.7 % (0.0-3.0); HEMATOCRIT 29.5 % (42.0-52.0); HEMOGLOBIN 10.2 gm/dL (14.0-18.0); LYMPHOCYTES 6.9 % (24.0-44.0); MCH 31.2 pg (26.0-34.0); MCHC 34.7 g/dL (28.0-37.0); MCV 90.1 fL (80.0-100.0); MONOCYTES 6.9 % (1.0-8.0); PLATELET COUNT 90 thou/uL (150-400); POLYS 85.3 % (36.0-66.0); RBC 3.27 mil/uL (4.50-6.00); RDW 14.7 % (10.5-14.5); WBC 7.8 thou/uL (4.0-11.0)
[2018-05-02 20:40] LABS: ANION GAP 5 mmol/L (7-16); BUN 15 mg/dL (7-18); CALCIUM 9.1 mg/dL (8.5-10.1); CHLORIDE 100 mmol/L (98-107); CO2 29 mmol/L (21-32); CREATININE 0.9 mg/dL (0.7-1.3); GLUCOSE 161 mg/dL (74-106); POTASSIUM 3.8 mmol/L (3.5-5.1); SODIUM 134 mmol/L (136-145)
[2018-05-02 20:49] LABS: ALBUMIN 3.7 g/dL (3.4-5.0); SGOT 16 U/L (15-37); SGPT 14 U/L (30-65); TOTAL BILIRUBIN 0.3 mg/dL (<0.1-1.0); TOTAL PROTEIN 6.9 g/dL (6.4-8.2); TROPONIN-I <0.06 ng/mL (<0.06)
[2018-05-02 21:09] LABS: LARGE PLATELETS RARE; POLYCHROMASIA OCCASIONAL
[2018-05-02 21:47] LABS: URINE BILIRUBIN NEGATIVE (Negative); URINE BLOOD NEGATIVE (Negative); URINE CLARITY CLEAR; URINE COLOR YELLOW; URINE GLUCOSE-RANDOM* NEGATIVE (Negative); URINE KETONES 1+ (Negative); URINE LEUKOCYTES-REFLEX NEGATIVE (Negative); URINE NITRITE-REFLEX NEGATIVE (Negative); URINE PROTEIN (DIPSTICK) NEGATIVE (Negative); URINE UROBILINOGEN 0.2 E.U./dl (0.2-1.0)
[2018-05-02 23:03] VITALS: BP 193/82
[2018-05-02 23:06] VITALS: BP 193/82
[2018-05-02 23:50] VITALS: BP 178/91
[2018-05-03 05:00] VITALS: BP 146/78
[2018-05-03 06:07] LABS: CALCIUM 8.8 mg/dL (8.5-10.1); CREATININE 0.9 mg/dL (0.7-1.3)
[2018-05-03 06:11] LABS: HEMATOCRIT 28.2 % (42.0-52.0); HEMOGLOBIN 9.7 gm/dL (14.0-18.0); MCH 30.9 pg (26.0-34.0); MCHC 34.2 g/dL (28.0-37.0); MCV 90.3 fL (80.0-100.0); RBC 3.13 mil/uL (4.50-6.00); RDW 14.7 % (10.5-14.5); WBC 9.1 thou/uL (4.0-11.0)
[2018-05-03 06:43] LABS: TSH 2.155 uIU/mL (0.358-3.740)
[2018-05-03 07:12] LABS: FOLIC ACID 35.5 ng/mL (8.6-58.9)
[2018-05-03 07:29] VITALS: BP 118/84
[2018-05-03 11:53] VITALS: BP 119/68
[2018-05-03 16:24] VITALS: BP 143/81
[2018-05-03 20:30] VITALS: BP 120/82
[2018-05-04 03:45] VITALS: BP 140/82
[2018-05-04 06:11] LABS: ABSOLUTE NEUTROPHILS 6.9 thou/uL (1.4-8.2); BASOPHILS 0.1 % (0.0-2.0); EOSINOPHILS 0.5 % (0.0-3.0); HEMATOCRIT 26.4 % (42.0-52.0); LYMPHOCYTES 4.7 % (24.0-44.0); MCH 30.8 pg (26.0-34.0); MCHC 34.1 g/dL (28.0-37.0); MCV 90.2 fL (80.0-100.0); MONOCYTES 6.6 % (1.0-8.0); PLATELET COUNT 81 thou/uL (150-400); POLYS 88.1 % (36.0-66.0); RBC 2.93 mil/uL (4.50-6.00); RDW 14.6 % (10.5-14.5); WBC 7.9 thou/uL (4.0-11.0)
[2018-05-04 06:19] LABS: CALCIUM 8.7 mg/dL (8.5-10.1); CREATININE 0.8 mg/dL (0.7-1.3); MAGNESIUM 1.9 mg/dL (1.8-2.4); POTASSIUM 3.6 mmol/L (3.5-5.1)
[2018-05-04 07:45] VITALS: BP 139/74
[2018-05-04 12:19] VITALS: BP 145/75
[2018-05-04 17:08] VITALS: BP 167/87
[2018-05-04 19:48] VITALS: BP 183/95
[2018-05-04 23:25] VITALS: BP 138/82
[2018-05-05 02:54] VITALS: BP 171/97
[2018-05-05 07:30] VITALS: BP 164/99
[2018-05-05 11:19] VITALS: BP 131/73
[2018-05-05 20:00] VITALS: BP 164/97
[2018-05-06 04:10] VITALS: BP 156/111
[2018-05-06 07:01] LABS: HEMATOCRIT 28.9 % (42.0-52.0); HEMOGLOBIN 9.8 gm/dL (14.0-18.0); MCH 30.2 pg (26.0-34.0); MCHC 33.9 g/dL (28.0-37.0); MCV 89.3 fL (80.0-100.0); RBC 3.23 mil/uL (4.50-6.00); RDW 14.1 % (10.5-14.5)
[2018-05-06 07:12] LABS: CALCIUM 9.2 mg/dL (8.5-10.1); CREATININE 0.7 mg/dL (0.7-1.3); MAGNESIUM 2.1 mg/dL (1.8-2.4); POTASSIUM 3.5 mmol/L (3.5-5.1)
[2018-05-06 07:18] VITALS: BP 155/97
[2018-05-06 07:45] VITALS: BP 155/99
[2018-05-06 11:30] VITALS: BP 119/87
[2018-05-06 15:45] VITALS: BP 144/93
[2018-05-06 19:22] VITALS: BP 157/106
[2018-05-07 00:17] VITALS: BP 160/88
[2018-05-07 04:30] VITALS: BP 182/103
[2018-05-07 08:45] VITALS: BP 156/99
[2018-05-07 16:36] VITALS: BP 128/80
[2018-05-07 20:17] LABS: BE(vivo) 2.3 mmol/L (-2 to +3); HCO3 26.3 mmol/L (22.0-26.0); PCO2 38.7 mmHg (35.0-45.0); PO2 167.5 mmHg (80.0-100.0); sO2 99.2 % (92.0-98.0)
[2018-05-07 21:00] VITALS: BP 180/100
[2018-05-07 22:00] VITALS: BP 98/67
[2018-05-08] VITALS (22 sets, daily range): BP systolic 73–173; BP diastolic 50–116
[2018-05-08 05:08] LABS: CREATININE 1.1 mg/dL (0.7-1.3); POTASSIUM 4.2 mmol/L (3.5-5.1)
[2018-05-08 05:28] LABS: ABSOLUTE NEUTROPHILS 3.8 thou/uL (1.4-8.2); EOSINOPHILS 0.2 % (0.0-3.0); HEMATOCRIT 32.8 % (42.0-52.0); HEMOGLOBIN 11.1 gm/dL (14.0-18.0); LYMPHOCYTES 5.3 % (24.0-44.0); MCH 30.5 pg (26.0-34.0); MCHC 33.7 g/dL (28.0-37.0); MCV 90.4 fL (80.0-100.0); MONOCYTES 1.9 % (1.0-8.0); PLATELET COUNT 145 thou/uL (150-400); POLYS 92.6 % (36.0-66.0); RBC 3.63 mil/uL (4.50-6.00); RDW 14.6 % (10.5-14.5); WBC 4.1 thou/uL (4.0-11.0)
[2018-05-09] VITALS (29 sets, daily range): BP systolic 78–170; BP diastolic 44–97
[2018-05-09 05:33] LABS: BE(vivo) 0.6 mmol/L (-2 to +3); HCO3 25.4 mmol/L (22.0-26.0); PCO2 41.7 mmHg (35.0-45.0); PO2 259.3 mmHg (80.0-100.0); pH 7.403 (7.360-7.450); sO2 99.6 % (92.0-98.0)
[2018-05-09 05:47] LABS: ABSOLUTE NEUTROPHILS 6.3 thou/uL (1.4-8.2); BASOPHILS 0.1 % (0.0-2.0); HEMATOCRIT 26.8 % (42.0-52.0); HEMOGLOBIN 9.3 gm/dL (14.0-18.0); LYMPHOCYTES 3.1 % (24.0-44.0); MCH 31.4 pg (26.0-34.0); MCHC 34.8 g/dL (28.0-37.0); MCV 90.1 fL (80.0-100.0); MONOCYTES 3.9 % (1.0-8.0); PLATELET COUNT 122 thou/uL (150-400); POLYS 92.9 % (36.0-66.0); RBC 2.97 mil/uL (4.50-6.00); RDW 14.1 % (10.5-14.5); WBC 6.8 thou/uL (4.0-11.0)
[2018-05-09 06:01] LABS: CALCIUM 8.8 mg/dL (8.5-10.1); POTASSIUM 4.4 mmol/L (3.5-5.1)
[2018-05-09 08:12] LABS: INR 1.1; PROTIME 10.8 Seconds (9.3-11.4)
[2018-05-10] VITALS (25 sets, daily range): BP systolic 88–192; BP diastolic 43–134
[2018-05-10 05:09] LABS: BE(vivo) 3.2 mmol/L (-2 to +3); HCO3 27.4 mmol/L (22.0-26.0); PCO2 40.3 mmHg (35.0-45.0); PO2 138.7 mmHg (80.0-100.0); pH 7.451 (7.360-7.450); sO2 98.9 % (92.0-98.0)
[2018-05-10 05:48] LABS: ABSOLUTE NEUTROPHILS 4.8 thou/uL (1.4-8.2); BASOPHILS 0.1 % (0.0-2.0); EOSINOPHILS 0.1 % (0.0-3.0); HEMATOCRIT 25.2 % (42.0-52.0); HEMOGLOBIN 8.7 gm/dL (14.0-18.0); LYMPHOCYTES 3.9 % (24.0-44.0); MCH 31.2 pg (26.0-34.0); MCHC 34.6 g/dL (28.0-37.0); MCV 90.1 fL (80.0-100.0); MONOCYTES 5.9 % (1.0-8.0); PLATELET COUNT 110 thou/uL (150-400); RDW 14.6 % (10.5-14.5); WBC 5.3 thou/uL (4.0-11.0)
[2018-05-10 06:06] LABS: CALCIUM 8.8 mg/dL (8.5-10.1); CREATININE 0.8 mg/dL (0.7-1.3); POTASSIUM 4.5 mmol/L (3.5-5.1)
[2018-05-11] VITALS (29 sets, daily range): BP systolic 103–206; BP diastolic 49–109
[2018-05-11 06:04] LABS: HEMOGLOBIN 10.3 gm/dL (14.0-18.0); MCH 30.1 pg (26.0-34.0); MCHC 33.1 g/dL (28.0-37.0); MCV 90.9 fL (80.0-100.0); RBC 3.41 mil/uL (4.50-6.00); RDW 14.7 % (10.5-14.5); WBC 7.2 thou/uL (4.0-11.0)
[2018-05-11 06:10] LABS: CALCIUM 8.9 mg/dL (8.5-10.1); CREATININE 0.8 mg/dL (0.7-1.3); POTASSIUM 3.9 mmol/L (3.5-5.1)
[2018-05-12] VITALS (32 sets, daily range): BP systolic 85–161; BP diastolic 40–88
[2018-05-12 11:14] LABS: HEMATOCRIT 29.4 % (42.0-52.0); HEMOGLOBIN 9.9 gm/dL (14.0-18.0); MCH 30.6 pg (26.0-34.0); MCHC 33.6 g/dL (28.0-37.0); MCV 91.2 fL (80.0-100.0); RBC 3.22 mil/uL (4.50-6.00); RDW 14.9 % (10.5-14.5); WBC 12.5 thou/uL (4.0-11.0)
[2018-05-12 11:29] LABS: ALBUMIN 2.9 g/dL (3.4-5.0); CALCIUM 8.8 mg/dL (8.5-10.1); CREATININE 0.9 mg/dL (0.7-1.3); MAGNESIUM 2.2 mg/dL (1.8-2.4); POTASSIUM 4.5 mmol/L (3.5-5.1); TOTAL BILIRUBIN 0.4 mg/dL (<0.1-1.0); TOTAL PROTEIN 6.3 g/dL (6.4-8.2)
[2018-05-13] VITALS (34 sets, daily range): BP systolic 120–175; BP diastolic 51–105
[2018-05-13 05:17] LABS: HEMATOCRIT 28.1 % (42.0-52.0); HEMOGLOBIN 9.7 gm/dL (14.0-18.0); MCH 31.2 pg (26.0-34.0); MCHC 34.4 g/dL (28.0-37.0); MCV 90.6 fL (80.0-100.0); RBC 3.1 mil/uL (4.50-6.00); RDW 14.9 % (10.5-14.5); WBC 7.7 thou/uL (4.0-11.0)
[2018-05-13 05:28] LABS: CALCIUM 8.8 mg/dL (8.5-10.1); CREATININE 0.8 mg/dL (0.7-1.3); MAGNESIUM 2.1 mg/dL (1.8-2.4); POTASSIUM 4.7 mmol/L (3.5-5.1)
[2018-05-14] VITALS (21 sets, daily range): BP systolic 87–180; BP diastolic 18–102
[2018-05-14 05:32] LABS: HEMATOCRIT 26.1 % (42.0-52.0); HEMOGLOBIN 8.9 gm/dL (14.0-18.0); MCH 30.9 pg (26.0-34.0); MCHC 34.2 g/dL (28.0-37.0); MCV 90.5 fL (80.0-100.0); RBC 2.89 mil/uL (4.50-6.00); RDW 15.2 % (10.5-14.5); WBC 8.2 thou/uL (4.0-11.0)
[2018-05-14 05:44] LABS: CALCIUM 8.7 mg/dL (8.5-10.1); CREATININE 0.9 mg/dL (0.7-1.3); MAGNESIUM 2.3 mg/dL (1.8-2.4); POTASSIUM 4.3 mmol/L (3.5-5.1)
[2018-05-14 10:10] LABS: BE(vivo) 4.4 mmol/L (-2 to +3); HCO3 28.8 mmol/L (22.0-26.0); PCO2 42.3 mmHg (35.0-45.0); PO2 124.4 mmHg (80.0-100.0); pH 7.451 (7.360-7.450); sO2 98.6 % (92.0-98.0)
[2018-05-15] VITALS (32 sets, daily range): BP systolic 74–150; BP diastolic 36–93
[2018-05-15 04:41] LABS: HEMATOCRIT 29.4 % (42.0-52.0); HEMOGLOBIN 9.8 gm/dL (14.0-18.0); MCH 30.4 pg (26.0-34.0); MCHC 33.5 g/dL (28.0-37.0); MCV 90.9 fL (80.0-100.0); RBC 3.23 mil/uL (4.50-6.00); RDW 14.8 % (10.5-14.5); WBC 9.1 thou/uL (4.0-11.0)
[2018-05-15 04:50] LABS: CALCIUM 8.7 mg/dL (8.5-10.1); CREATININE 0.9 mg/dL (0.7-1.3); MAGNESIUM 2.1 mg/dL (1.8-2.4); POTASSIUM 4.4 mmol/L (3.5-5.1)
[2018-05-16] VITALS (12 sets, daily range): BP systolic 114–163; BP diastolic 44–81
[2018-05-16 04:52] LABS: HEMATOCRIT 29.4 % (42.0-52.0); HEMOGLOBIN 9.6 gm/dL (14.0-18.0); MCH 29.8 pg (26.0-34.0); MCHC 32.6 g/dL (28.0-37.0); MCV 91.5 fL (80.0-100.0); RBC 3.22 mil/uL (4.50-6.00); RDW 14.8 % (10.5-14.5); WBC 11.1 thou/uL (4.0-11.0)
[2018-05-16 04:59] LABS: CALCIUM 8.6 mg/dL (8.5-10.1); CREATININE 0.9 mg/dL (0.7-1.3); POTASSIUM 3.8 mmol/L (3.5-5.1)
[2018-05-17] VITALS (26 sets, daily range): BP systolic 104–186; BP diastolic 44–111
[2018-05-18] VITALS (17 sets, daily range): BP systolic 97–166; BP diastolic 49–99
[2018-05-18 03:40] LABS: HEMATOCRIT 28.3 % (42.0-52.0); HEMOGLOBIN 9.3 gm/dL (14.0-18.0); MCH 30.2 pg (26.0-34.0); MCHC 32.9 g/dL (28.0-37.0); MCV 91.9 fL (80.0-100.0); RBC 3.08 mil/uL (4.50-6.00); WBC 6.8 thou/uL (4.0-11.0)
[2018-05-18 03:45] LABS: CALCIUM 8.7 mg/dL (8.5-10.1); CREATININE 0.8 mg/dL (0.7-1.3); POTASSIUM 3.7 mmol/L (3.5-5.1)
[2018-05-18] MEDS ORDERED: IPRAT-ALBUT 0.5-3 ML INH (12:11)
[2018-05-18] MEDS ORDERED: ALBUTEROL2.5 MG/31 INH (12:12)
[2018-05-18] MEDS ORDERED: IRON325 PO (12:12)
[2018-05-18] MEDS ORDERED: LOPRESSOR25 PO (12:13)
[2018-05-18] MEDS ORDERED: PULMICORT0.5 MG/21 INH (12:14)
[2018-05-18] MEDS ORDERED: LASIX 40 MG TAB40 M2 PO (12:14)
[2018-05-18] MEDS ORDERED: SEROQUEL 25 MG25 M1 PO (12:14)
[2018-05-18] MEDS ORDERED: PERCOCET PO (12:15)
[2018-05-18] MEDS ORDERED: AUGMENTIN 875-1 EACH PO (12:16)
== END 2018-05-18 15:02 | DRG 4 ==
LOC: ER 20:22 → EROBS 22:52 → 3W 22:52 → ICU 22:52 → 3W 23:54 → ICU 05-07 20:37
PROVIDERS: Hospitalist; Internal Medicine; Internal Medicine Pulmonary Disease; Nurse Practitioner Family; Physician Assistant; Radiology Vascular & Interventional Radiology; Surgery
PROC: 5A1945Z Respiratory Ventilation, 24-96 Consecutive Hours (ICD-10-PCS; principal; 2018-05-07)
PROC: 05HC33Z Insertion of Infusion Device into Left Basilic Vein, Percutaneous Approach (ICD-10-PCS; 2018-05-08)
PROC: 0B110F4 Bypass Trachea to Cutaneous with Tracheostomy Device, Open Approach (ICD-10-PCS; 2018-05-10)
PROC: 0DH64UZ Insertion of Feeding Device into Stomach, Percutaneous Endoscopic Approach (ICD-10-PCS; 2018-05-12)
DX: J96.01 Acute respiratory failure with hypoxia (principal); E43 Unspecified severe protein-calorie malnutrition; G92 Toxic encephalopathy; Z99.11 Dependence on respirator [ventilator] status; G45.9 Transient cerebral ischemic attack, unspecified; K21.9 Gastro-esophageal reflux disease without esophagitis; E78.00 Pure hypercholesterolemia, unspecified; I48.91 Unspecified atrial fibrillation; E86.0 Dehydration; E78.5 Hyperlipidemia, unspecified; I10 Essential (primary) hypertension; G47.33 Obstructive sleep apnea (adult) (pediatric); I71.4 Abdominal aortic aneurysm, without rupture; D50.9 Iron deficiency anemia, unspecified; M62.84 Sarcopenia; F03.90 Unspecified dementia, unspecified severity, without behavioral disturbance, psychotic disturbance, mood disturbance, and anxiety; E86.9 Volume depletion, unspecified; D69.6 Thrombocytopenia, unspecified; I95.1 Orthostatic hypotension; K22.2 Esophageal obstruction; R13.13 Dysphagia, pharyngeal phase; R41.0 Disorientation, unspecified; Z90.49 Acquired absence of other specified parts of digestive tract; Z86.73 Personal history of transient ischemic attack (TIA), and cerebral infarction without residual deficits; Z85.01 Personal history of malignant neoplasm of esophagus; Z79.82 Long term (current) use of aspirin; Z79.899 Other long term (current) drug therapy; Z98.42 Cataract extraction status, left eye; Z98.41 Cataract extraction status, right eye; Z85.46 Personal history of malignant neoplasm of prostate
CPT/HCPCS: 10078; 10203; 10879; 27000; 50101; 50386; 50398; 50411; 50555; 50558; 53307; 53310; 56524; 56525; 56526; 56528; 57114; 57145; 62110; 62900

== ENCOUNTER → 2018-07-28 | Outpatient (CLI) | payer OTHER ==
[~2018-07-28] MED LIST changes: +ALBUTEROL2.5 MG/31 INH; +AUGMENTIN 875-1 EACH PO; +IPRAT-ALBUT 0.5-3 ML INH; +IRON325 PO; +LASIX 40 MG TAB40 M2 PO; +LOPRESSOR25 PO; +PERCOCET PO; +PULMICORT0.5 MG/21 INH; +SEROQUEL 25 MG25 M1 PO
== END ==
LOC: RAD 10:16
DX: R05 Cough (principal); Q25.46 Tortuous aortic arch

== ENCOUNTER → 2018-08-17 | Outpatient (CLI) | payer OTHER | LOC: CAT 08:12 | DX: I71.4 Abdominal aortic aneurysm, without rupture (principal); N20.0 Calculus of kidney; N40.2 Nodular prostate without lower urinary tract symptoms; M16.0 Bilateral primary osteoarthritis of hip; M47.816 Spondylosis without myelopathy or radiculopathy, lumbar region ==

== ENCOUNTER 2018-08-28 04:15 | Emergency (ER) | payer OTHER ==
[~2018-08-28] VITALS: Ht 182.9 cm; Wt 77.6 kg
[2018-08-28] MEDS ORDERED: LIQUITUSS200 MG/5 M PER TUBE (05:46)
[2018-08-28 06:07] VITALS: BP 122/53
== END 2018-08-28 06:09 | disposition home or self-care (01) ==
LOC: ER 04:15
DX: J95.09 Other tracheostomy complication (principal); E78.00 Pure hypercholesterolemia, unspecified; G47.30 Sleep apnea, unspecified; K21.9 Gastro-esophageal reflux disease without esophagitis; I48.91 Unspecified atrial fibrillation; I11.0 Hypertensive heart disease with heart failure; I50.30 Unspecified diastolic (congestive) heart failure; Z86.2 Personal history of diseases of the blood and blood-forming organs and certain disorders involving the immune mechanism; Z85.01 Personal history of malignant neoplasm of esophagus; Z90.49 Acquired absence of other specified parts of digestive tract; Z86.73 Personal history of transient ischemic attack (TIA), and cerebral infarction without residual deficits; Z85.46 Personal history of malignant neoplasm of prostate; Y84.9 Medical procedure, unspecified as the cause of abnormal reaction of the patient, or of later complication, without mention of misadventure at the time of the procedure; Y82.8 Other medical devices associated with adverse incidents

== ENCOUNTER → 2018-08-30 | Outpatient (CLI) | payer OTHER ==
[~2018-08-30] MED LIST changes: +ACETYLCYST200 MG/1 M INH; +LIQUITUSS200 MG/5 M PER TUBE
== END ==
LOC: RAD 05:53 → SPEECH 10:48 → RAD 10:48
DX: R13.14 Dysphagia, pharyngoesophageal phase (principal)

== ENCOUNTER 2018-09-08 08:13 | Emergency (ER) | payer OTHER ==
[~2018-09-08] VITALS: Ht 177.8 cm; Wt 81.0 kg
[~2018-09-08 08:13] MED LIST changes: -ACETYLCYST200 MG/1 M INH
[2018-09-08] MEDS ORDERED: ALBUTEROL2.5 MG/31 INH (09:42)
[2018-09-08] MEDS ORDERED: ACETYLCYST200 MG/1 M INH (09:42)
[2018-09-08 10:34] VITALS: BP 120/65
== END 2018-09-08 10:35 | disposition home or self-care (01) ==
LOC: ER 08:13
DX: J95.09 Other tracheostomy complication (principal); T17.590A Other foreign object in bronchus causing asphyxiation, initial encounter; I11.0 Hypertensive heart disease with heart failure; I50.30 Unspecified diastolic (congestive) heart failure; E78.00 Pure hypercholesterolemia, unspecified; G47.30 Sleep apnea, unspecified; K21.9 Gastro-esophageal reflux disease without esophagitis; I48.91 Unspecified atrial fibrillation; Z85.46 Personal history of malignant neoplasm of prostate; Z90.49 Acquired absence of other specified parts of digestive tract; Z86.73 Personal history of transient ischemic attack (TIA), and cerebral infarction without residual deficits; Z85.828 Personal history of other malignant neoplasm of skin; Z86.2 Personal history of diseases of the blood and blood-forming organs and certain disorders involving the immune mechanism; Z85.01 Personal history of malignant neoplasm of esophagus; Y84.8 Other medical procedures as the cause of abnormal reaction of the patient, or of later complication, without mention of misadventure at the time of the procedure

== ENCOUNTER → 2018-10-19 | Outpatient (CLI) | payer OTHER ==
[~2018-10-19] MED LIST changes: +ACETYLCYST200 MG/1 M INH
== END ==
LOC: RAD 07:45 → SPEECH 08:08 → RAD 11:15
DX: R13.12 Dysphagia, oropharyngeal phase (principal)

== ENCOUNTER 2018-11-16 06:40 | Emergency (ER) | payer OTHER ==
[~2018-11-16] VITALS: Ht 185.4 cm; Wt 77.6 kg
[2018-11-16 07:02] VITALS: BP 147/73
[2018-11-16] MEDS ORDERED: ACETYLCYST200 MG/1 M INH (07:19)
== END 2018-11-16 07:29 | disposition home or self-care (01) ==
LOC: ER 06:40
DX: Z43.0 Encounter for attention to tracheostomy (principal); I10 Essential (primary) hypertension; I48.91 Unspecified atrial fibrillation; K21.9 Gastro-esophageal reflux disease without esophagitis; G47.30 Sleep apnea, unspecified; E78.00 Pure hypercholesterolemia, unspecified; Z90.49 Acquired absence of other specified parts of digestive tract

== ENCOUNTER 2019-01-01 06:11 | Emergency (ER) | payer OTHER ==
[~2019-01-01] VITALS: Ht 182.9 cm; Wt 83.0 kg
[2019-01-01 06:21] VITALS: BP 133/74
[2019-01-01] MEDS ORDERED: TRELEGY ELLIPT1 EACH (06:27)
== END 2019-01-01 07:15 | disposition home or self-care (01) ==
LOC: ER 06:11
DX: K94.23 Gastrostomy malfunction (principal); E78.00 Pure hypercholesterolemia, unspecified; I48.91 Unspecified atrial fibrillation; K21.9 Gastro-esophageal reflux disease without esophagitis; I10 Essential (primary) hypertension; G47.30 Sleep apnea, unspecified; Z90.49 Acquired absence of other specified parts of digestive tract; Z86.73 Personal history of transient ischemic attack (TIA), and cerebral infarction without residual deficits; Z85.01 Personal history of malignant neoplasm of esophagus; Z86.2 Personal history of diseases of the blood and blood-forming organs and certain disorders involving the immune mechanism; Z85.46 Personal history of malignant neoplasm of prostate

== ENCOUNTER → 2019-01-10 | Outpatient (CLI) | payer OTHER ==
[~2019-01-10] MED LIST changes: +TRELEGY ELLIPT1 EACH
== END ==
LOC: SPEECH 10:40 → RAD 10:40
DX: R13.12 Dysphagia, oropharyngeal phase (principal); I10 Essential (primary) hypertension; I48.91 Unspecified atrial fibrillation; K21.9 Gastro-esophageal reflux disease without esophagitis; G47.30 Sleep apnea, unspecified; D64.9 Anemia, unspecified; Z85.46 Personal history of malignant neoplasm of prostate; Z98.41 Cataract extraction status, right eye; Z98.42 Cataract extraction status, left eye; Z85.828 Personal history of other malignant neoplasm of skin; Z87.19 Personal history of other diseases of the digestive system; E78.00 Pure hypercholesterolemia, unspecified; Z85.01 Personal history of malignant neoplasm of esophagus; Z90.49 Acquired absence of other specified parts of digestive tract; Z86.73 Personal history of transient ischemic attack (TIA), and cerebral infarction without residual deficits; Z98.890 Other specified postprocedural states; Z79.899 Other long term (current) drug therapy; Z79.01 Long term (current) use of anticoagulants

== ENCOUNTER → 2019-02-07 | Outpatient (CLI) | payer OTHER | LOC: SPEECH 10:54 → RAD 10:54 | DX: R13.12 Dysphagia, oropharyngeal phase (principal); Z93.0 Tracheostomy status ==

== ENCOUNTER 2019-03-02 09:02 | Emergency (ER) | payer OTHER ==
[~2019-03-02] VITALS: Ht 180.3 cm; Wt 81.7 kg
[2019-03-02 10:25] LABS: HEMOGLOBIN 7.5 gm/dL (14.0-18.0); MCH 30.6 pg (26.0-34.0); MCHC 32.6 g/dL (28.0-37.0); MCV 93.8 fL (80.0-100.0); RBC 2.45 mil/uL (4.50-6.00); RDW 20.4 % (10.5-14.5); WBC 2.9 thou/uL (4.0-11.0)
[2019-03-02 10:28] LABS: ANION GAP 6 mmol/L (7-16); BUN 17 mg/dL (7-18); CALCIUM 8.6 mg/dL (8.5-10.1); CHLORIDE 98 mmol/L (98-107); CO2 30 mmol/L (21-32); CREATININE 0.8 mg/dL (0.7-1.3); GLUCOSE 129 mg/dL (74-106); SODIUM 134 mmol/L (136-145)
[2019-03-02 10:35] LABS: ALBUMIN 3.1 g/dL (3.4-5.0); DIRECT BILIRUBIN < 0.1 mg/dL (<0.1-0.3); LIPASE 122 U/L (73-393); SGOT 19 U/L (15-37); SGPT 19 U/L (30-65); TOTAL BILIRUBIN 0.2 mg/dL (<0.1-1.0); TOTAL PROTEIN 6.4 g/dL (6.4-8.2)
[2019-03-02 11:04] LABS: ANISOCYTOSIS 1+; PLATELET COUNT 78 thou/uL (150-400); PLATELET ESTIMATE SLIGHTLY DECREASED; POIKILOCYTOSIS SLIGHT; POLYCHROMASIA SLIGHT
[2019-03-02 11:46] LABS: URINE BILIRUBIN NEGATIVE (Negative); URINE BLOOD NEGATIVE (Negative); URINE CLARITY CLEAR; URINE COLOR YELLOW; URINE GLUCOSE-RANDOM* NEGATIVE (Negative); URINE KETONES NEGATIVE (Negative); URINE LEUKOCYTES-REFLEX NEGATIVE (Negative); URINE NITRITE-REFLEX NEGATIVE (Negative); URINE PROTEIN (DIPSTICK) NEGATIVE (Negative); URINE SPECIFIC GRAVITY 1.015 (1.005-1.035); URINE UROBILINOGEN 0.2 E.U./dl (0.2-1.0)
[2019-03-02 12:57] VITALS: BP 112/63
--- NOTE | 2019-03-04 18:31 | EKG ---
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1935 Requested By: Manisha Reynaga Order Number: [id number] MD: Blair Garcia Measurements Intervals [place] Rate: 94 P: -11 CT: 197 QRS: -45 QRSD: 97 T: 94 QT: 362 QTc: 453 Interpretive Statements Sinus rhythm Left axis deviation Frequent PVCs Nonspecific ST/T abnormalities Compared to ECG 05/02/2018 20:23:36 Sinus tachycardia no longer present Unifocal PVCs are now noted Electronically Signed On 03-04-2019 18:31:20 CDT by Blair Garcia [email or web address] ��������������������������������������������� <ELECTRONICALLY SIGNED> ���������������������������������������� By: Blair Garcia MD ��������������������������������������������� 03/04/19 1831 0908 0908 Blair Garcia MD /EPI
== END 2019-03-02 12:57 | disposition home or self-care (01) ==
LOC: ER 09:02
PROVIDERS: Emergency Medicine
DX: D50.9 Iron deficiency anemia, unspecified (principal); E78.00 Pure hypercholesterolemia, unspecified; G47.30 Sleep apnea, unspecified; I48.91 Unspecified atrial fibrillation; K21.9 Gastro-esophageal reflux disease without esophagitis; I10 Essential (primary) hypertension; Z90.49 Acquired absence of other specified parts of digestive tract; Z86.73 Personal history of transient ischemic attack (TIA), and cerebral infarction without residual deficits; Z85.46 Personal history of malignant neoplasm of prostate

== ENCOUNTER 2019-03-05 12:33 | Inpatient (IN) | payer OTHER ==
[~2019-03-05] VITALS: Ht 182.9 cm; Wt 79.4 kg
--- NOTE | ~2019-03-05 | HC ---
[facility] [place] [address] CONSULTATION Name: MARI JAMISON Room #: 452-P ADM IN M.R.#: [id number] Admission: 03/05/19 ������������������ Attend Phys: Haris Carey MD Discharge: ������������������ Date of : 33 Report #: [id number] THIS REPORT FOR: //name// CC: Haris Morales MD DATE OF SERVICE: 03/06/[address] Haris Carey. REASON FOR CONSULTATION: Anemia and leukopenia. 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 It has not recurred. He does have a PEG feeding tube and also tracheostomy. The patient had been seen at by GI for iron deficiency anemia and he also has a history of esophageal strictures. He had received Injectafer 750 mg on 09/25/2018 and 10/02/2018 and again recently on 02/28/2019. But afterwards, he felt slightly woozy and tired and this had gotten slightly worse. He came to the ER yesterday and was admitted. Yesterday, his white count was around 1.8, hemoglobin was only 7, today it is 7.8, platelets around 96, where he was thought to have some aggregation. Lab today includes also folate of 31.6, B12 of 467, iron of 39, TIBC 322, percent saturation of 12%, TSH 6.11. Chest x-ray was clear. UA was unremarkable. CMP was normal except for an albumin of 3.3. The patient previously had discussions with Dr. Morales about the appropriateness or danger of doing a colonoscopy and had elected not to do. They are aware there could be some occult polyps or malignancies. He had been on oral iron. His stool had been mostly black and tarry. The patient denies any recent fevers or chills. He does have swallowing difficulties, has PEG feeding tube. 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 PAST MEDICAL HISTORY: Notable for the esophageal cancer from about 2007, treated with chemo and radiation therapy. Also, history of appendectomy, hypertension, TIA, colonic polyps in 2004, lipid abnormalities, gastrostomy tube, esophageal strictures, iron deficiency. 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 Nonsmoker, rare alcohol. is very attentive and present. FAMILY HISTORY: Mother of old age with pneumonia. Father at age 41. He [facility] [address] [place] [address] CONSULTATION Name: MARI JAMISON Room #: 452-P [facility] IN M.R.#: [id number] Admission: 03/05/19 ������������������ Attend Phys: Haris Carey MD Discharge: ������������������ Date of : 33 Report #: [id number] has 3 children. They have a daughter who is having a baby probably today. PHYSICAL EXAMINATION: GENERAL: The patient appears his stated age. He is lying in a hospital bed. He has a trach, so he does not talk, appears to be very coherent. VITAL SIGNS: Height is 6 feet, which is 182.9 cm. Weight is 175 pounds, which is 79.4 kilograms. Blood pressure is 134/82, O2 sat 96%, respirations 18, temperature 98.4, pulse 94. Note, the peripheral smear review also did not show any acute forms. ASSESSMENT AND PLAN: 1. Anemia, unclear iron loss may be related to chronic esophageal irritation. The patient will receive 500 mg of Venofer today to sort of makeup for the Injectafer that would have been given tomorrow. Continue observation. The patient will follow up with Dr. Francis. If his white count does not improve, we will consider bone marrow biopsy. At this time, we are hoping that the neutropenia is related to his iron deficiency. 2. Weakness. PT, OT to see the patient. 3. Nutrition. Continues PEG feeding tubes. 4. Esophageal dilatation, p.r.n. dilatations from Dr. Morales. 5. Emphysema/chronic obstructive pulmonary disease type illness. Continues albuterol, guaifenesin, ipratropium, and budesonide. 6. Fluid retention. Occasional furosemide. 7. Hyperlipidemia, rosuvastatin. Medications at this time in the hospital ____. (DICTATION ENDS HERE). ��������������������������������������������� ���������������������������������������� By: ��������������������������������������������� 0804 2236 Manpreet Cormier MD /nt
[2019-03-05 11:30] VITALS: BP 158/61
[2019-03-05 12:38] VITALS: BP 93/56
[2019-03-05 12:52] LABS: HEMATOCRIT 23.7 % (42.0-52.0); HEMOGLOBIN 7.8 gm/dL (14.0-18.0)
[2019-03-05 12:54] LABS: MCH 31.4 pg (26.0-34.0); MCV 95.3 fL (80.0-100.0); RBC 2.49 mil/uL (4.50-6.00); RDW 20.9 % (10.5-14.5)
[2019-03-05 12:57] LABS: WBC 1.7 thou/uL (4.0-11.0)
[2019-03-05 13:02] LABS: CALCIUM 8.6 mg/dL (8.5-10.1); CREATININE 0.8 mg/dL (0.7-1.3)
[2019-03-05 13:06] LABS: ALBUMIN 3.3 g/dL (3.4-5.0); TOTAL BILIRUBIN 0.2 mg/dL (<0.1-1.0); TOTAL PROTEIN 6.9 g/dL (6.4-8.2)
[2019-03-05 13:18] LABS: ABSOLUTE NEUTROPHILS 1.2 thou/uL (1.4-8.2); ANISOCYTOSIS 1+; PLATELET COUNT 89 thou/uL (150-400); PLATELET ESTIMATE SLIGHTLY DECREASED
[2019-03-05] MEDS ORDERED: LOPRESSOR25 PO (13:25)
[2019-03-05] MEDS ORDERED: ASPIRIN325 PO (13:26)
[2019-03-05 13:28] LABS: TROPONIN-I <0.06 ng/mL (<0.06)
[2019-03-05 14:26] LABS: URINE BILIRUBIN NEGATIVE (Negative); URINE BLOOD NEGATIVE (Negative); URINE CLARITY CLEAR; URINE COLOR YELLOW; URINE GLUCOSE-RANDOM* NEGATIVE (Negative); URINE KETONES NEGATIVE (Negative); URINE LEUKOCYTES NEGATIVE (Negative); URINE NITRITE NEGATIVE (Negative); URINE PROTEIN (DIPSTICK) NEGATIVE (Negative); URINE UROBILINOGEN 0.2 E.U./dl (0.2-1.0)
[2019-03-05 15:30] VITALS: BP 152/81
[2019-03-05 15:57] LABS: % SATURATION 12 % (20-39); IRON 39 ug/dL (65-175); TIBC 322 ug/dL (250-450)
[2019-03-05 16:30] LABS: FOLIC ACID 31.6 ng/mL (8.6-58.9)
[2019-03-05 18:58] VITALS: BP 156/86
[2019-03-05 20:00] VITALS: BP 144/82
[2019-03-05 21:42] VITALS: BP 147/78
[2019-03-05 23:07] LABS: HEMOGLOBIN 7.8 g/dL (13.0-17.7)
--- NOTE | 2019-03-06 03:03 | NUR ---
ADMITTED FROM ER UNDER 'S CARE. AXOX4. TRACH AND PEG INTACT. PEG PLACEMENT VERIFIED BY 2ND RN ANNMARIE AT BEDSIDE. VSS. NO S/S ACUTE DISTRESS NOTED OR RERPORTED AT THIS TIME. WILL CONT TO MONITOR ANY CHANGES IN CONDITION.
[2019-03-06 03:21] VITALS: BP 134/82
[2019-03-06 07:41] VITALS: BP 115/66
--- NOTE | 2019-03-06 08:37 | EKG ---
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1935 Requested By: Manisha Reynaga Order Number: [id number] MD: Patel Sun Measurements Intervals [place] Rate: 90 P: 35 ND: 199 QRS: -37 QRSD: 104 T: 85 QT: 384 QTc: 470 Interpretive Statements Sinus rhythm Multiple ventricular premature complexes Left axis deviation Abnormal R-wave progression, early transition Compared to ECG 03/02/2019 09:08:11 No significant changes Electronically Signed On 03-06-2019 8:37:16 CDT by Patel Sun [email or web address] ��������������������������������������������� <ELECTRONICALLY SIGNED> ���������������������������������������� By: Patel Sun MD, [facility] ��������������������������������������������� 03/06/19 0837 1250 1250 Patel Sun MD, [facility] /EPI
--- NOTE | 2019-03-06 10:06 | NUR ---
Nutrition: Pt current tube feeding order meets 94-100% of needs. reports pt has been eating as well and following with ST as outpatient. Has been taking [facility] soft, thin liquids. If diet advances, REC decrease tube feeds to 4 cans jevity 1.5 daily via bolus gravity regimen. Flush with 200 mL H20 after each bolus.
[2019-03-06 14:23] VITALS: BP 121/62
--- NOTE | 2019-03-06 15:43 | NUR ---
DISCHARGE PLANNING. ANTICIPATED DISCHARGE TO HOME TOMORROW. HOME HEALTH SERVICES RECOMMENDED AT DISCHARGE. REFERRAL FAXED TO [facility] PER PATIENT REQUEST. CALL PLACED TO [facility] INTAKE, SPOKE WITH BACILIO. BACILIO STATES PATIENT HAS BE[facility] BEFORE AND WILL REVIEW REFERRAL, ONCE COMPLETE BACILIO TO NOTIFY CM OF ACCEPTANCE. FOLLOWING TO ASSIST WITH DISCHARGE NEEDS.
--- NOTE | 2019-03-06 16:40 | NUR ---
PT ADMITTED RELATED TO WEAKNESS,FATIGUE,LOW WBC. CM REVIEWED CHART AND SPOKE WITH CARE TEAM. CM MET WITH PT AND SPOUSE AT BEDSIDE THIS DAY. PT IS A&O X4. CM ROLE INTRODUCED. THEY INDICATED THAT THEY RESIDE IN A HOUSE WITH 2 STEPS TO ENTER AND 13 STEPS INSIDE BUT PT DOESN'T USE THEM. SPOUSE INDICATED THAT HE HAS A FWW AND A CANE TO ASSIST WITH MOBILITY. SHE INDICATED THAT PT HAD BEEN ON [facility] IN THE PAST AND THEY WOULD LIKE TO USE THEM AGAIN UPON DISHARGE. SHE INDICATED THAT THEY GET SUPPLIES THROUGH [facility]. REFERRAL SENT TO [facility]. IT IS ANTICIPATED THAT PT WILL DC HOME TOMORROW. CM TO FOLLOW INDICATED WITH DC PLANNING.
[2019-03-06 19:21] VITALS: BP 137/68
--- NOTE | 2019-03-06 21:10 | NUR ---
Received awake on bed. Due medications given as prescribed. A+Ox4. With trach connected to O2 at 8lpm, as per pt's he's only having oxygen during the night time, on regular breathing treatments. With PEG tube in- intact, on tube feedings, meds given thru tube as well. Pt with condom cath and able to go to the toilet using walker, with moderate assist and gait belt. With SL at R FA- intact and flushing well. A/W PT/OT/ST review today. Vital signs stable. With at bedside. Am dose of Metoprolol given, BP low. Pt seen by [facility] this AM- ordered for Iron infusion- given as prescribed, no reactions noted, tolerated well. Pt seen by hospitalist today, on conditional discharge once PT/OT/ST/gravity manager seen pt. Pt seen by PT, able to tolerate session, OT suggested pt to either be d/c to SNF or Home with home health- CM made aware. Speech therapist seen and assessed pt, may have 1 pleasure meal- preferrably lunch- orders put in by ST, on aspiration precautions. As per CM, home health to be set up probably tomorrow; Dr Jacobson updated re: today's progress. Dr Mary seen pt this PM and said that pt's said to him that the consult was cancelled- Dr Mary informed that no consults has been cancelled today. With consult to Dr Khan this AM- US called in consult.
--- NOTE | 2019-03-07 04:15 | NUR ---
ASSUMED CARE AROUND 1900. AXOX4. TRACH AND PEG INTACT. DENIES PAIN AT THIS TIME. NO S/S ACUTE DISTRESS NOTED OR REPORTED AT THIS TIME. WILL CONT TO MONITOR FOR ANY CHANGES IN CONDITION.
[2019-03-07 07:43] VITALS: BP 131/66
[2019-03-07 10:39] VITALS: BP 131/66
--- NOTE | 2019-03-07 10:49 | NUR ---
DC PT IS FOR DC. DC PACKET PROVIDED. IV DC'D.
[2019-03-07 11:13] VITALS: BP 131/66
--- NOTE | 2019-03-07 15:14 | NUR ---
CARE TEAM INDICATED THAT PT IS MEDICALLY STABLE TO DC HOME THIS DAY. PT IS TO HAVE [facility]. ORDERS WERE SENT. PT'S SPOUSE PROVIDED TRANSPORT HOME. NO OTHER CM INTERVENTION INDICATED. CASE CLOSED.
== END 2019-03-07 12:45 | disposition home health service (06) | DRG 810 ==
LOC: ER 12:33 → EROBS 15:02 → 4W 15:02
PROVIDERS: Emergency Medicine; ADMIT Internal Medicine
DX: D61.818 Other pancytopenia (principal); D50.9 Iron deficiency anemia, unspecified; K21.9 Gastro-esophageal reflux disease without esophagitis; I48.91 Unspecified atrial fibrillation; I10 Essential (primary) hypertension; J43.9 Emphysema, unspecified; E78.00 Pure hypercholesterolemia, unspecified; E78.5 Hyperlipidemia, unspecified; K22.8 Other specified diseases of esophagus; E03.9 Hypothyroidism, unspecified; I73.9 Peripheral vascular disease, unspecified; Z90.49 Acquired absence of other specified parts of digestive tract; Z86.73 Personal history of transient ischemic attack (TIA), and cerebral infarction without residual deficits; Z85.01 Personal history of malignant neoplasm of esophagus; Z98.42 Cataract extraction status, left eye; Z98.41 Cataract extraction status, right eye; Z85.46 Personal history of malignant neoplasm of prostate; Z93.0 Tracheostomy status; Z93.1 Gastrostomy status; Z86.010 Personal history of colon polyps; Z83.6 Family history of other diseases of the respiratory system; Z79.82 Long term (current) use of aspirin; Z79.899 Other long term (current) drug therapy
CPT/HCPCS: 10040

== ENCOUNTER 2019-03-23 09:40 | Emergency (ER) | payer OTHER ==
[~2019-03-23] VITALS: Ht 180.3 cm; Wt 81.0 kg
[2019-03-23 11:10] VITALS: BP 148/79
== END 2019-03-23 11:11 | disposition home or self-care (01) ==
LOC: ER 09:40
DX: K94.23 Gastrostomy malfunction (principal); I10 Essential (primary) hypertension; I48.91 Unspecified atrial fibrillation; K21.9 Gastro-esophageal reflux disease without esophagitis; E78.00 Pure hypercholesterolemia, unspecified; Z90.49 Acquired absence of other specified parts of digestive tract; Z79.899 Other long term (current) drug therapy; Z98.890 Other specified postprocedural states

== ENCOUNTER 2019-03-23 18:17 | Emergency (ER) | payer OTHER ==
[~2019-03-23] VITALS: Ht 182.9 cm; Wt 81.7 kg
[2019-03-23 18:27] VITALS: BP 135/78
== END 2019-03-23 19:50 | disposition home or self-care (01) ==
LOC: ER 18:17
DX: K94.23 Gastrostomy malfunction (principal); K21.9 Gastro-esophageal reflux disease without esophagitis; E78.00 Pure hypercholesterolemia, unspecified; I48.91 Unspecified atrial fibrillation; I10 Essential (primary) hypertension; G47.30 Sleep apnea, unspecified; Z90.49 Acquired absence of other specified parts of digestive tract; Z86.73 Personal history of transient ischemic attack (TIA), and cerebral infarction without residual deficits; Z85.01 Personal history of malignant neoplasm of esophagus; Z85.828 Personal history of other malignant neoplasm of skin; Z85.46 Personal history of malignant neoplasm of prostate; Z86.2 Personal history of diseases of the blood and blood-forming organs and certain disorders involving the immune mechanism

== ENCOUNTER 2019-03-25 05:47 | Emergency (ER) | payer OTHER ==
[~2019-03-25] VITALS: Ht 182.9 cm; Wt 81.7 kg
[2019-03-25] MEDS ORDERED: METOPROLOL TART25 MG PO (06:14)
[2019-03-25 07:53] VITALS: BP 153/80
== END 2019-03-25 07:53 | disposition home or self-care (01) ==
LOC: ER 05:47
DX: K94.23 Gastrostomy malfunction (principal); G47.30 Sleep apnea, unspecified; I48.91 Unspecified atrial fibrillation; I10 Essential (primary) hypertension; E78.00 Pure hypercholesterolemia, unspecified; K21.9 Gastro-esophageal reflux disease without esophagitis; Z85.828 Personal history of other malignant neoplasm of skin; Z95.2 Presence of prosthetic heart valve; Z86.2 Personal history of diseases of the blood and blood-forming organs and certain disorders involving the immune mechanism; Z98.41 Cataract extraction status, right eye; Z98.42 Cataract extraction status, left eye; Z86.73 Personal history of transient ischemic attack (TIA), and cerebral infarction without residual deficits; Z90.49 Acquired absence of other specified parts of digestive tract